=== PATIENT | female | born 1940 | race Caucasian/White ===

== ENCOUNTER → 2016-08-28 | Outpatient (CLI) | payer MEDICARE, OTHER | LOC: KOH-I 11:14 | DX: R06.02 Shortness of breath (principal); R06.2 Wheezing; J90 Pleural effusion, not elsewhere classified; J98.09 Other diseases of bronchus, not elsewhere classified | CPT/HCPCS: 71020 ==

== ENCOUNTER → 2020-06-08 | Outpatient (CLI) | payer MEDICARE, OTHER ==
[~2020-06-08] MED LIST: ALBUTEROL2.5 MG/3 M INH; CRESTOR20 MG PO; ELIQUIS5 MG PO; HYDRALAZINE HCL50 MG PO; IMDUR ER TAB 3030 MG PO; ISOSORBIDE MONO60 MG PO; LASIX20 MG PO; LEVOTHYROXINE100 MC2 PO; NITROGLYCERIN0.4 MG SL; PREDNISONE20 MG PO; PRILOSEC OTC20 MG PO; SYMBICORT 160-1 INHA INH; TOPROL XL100 MG PO; VITAMIN D31250 MCG PO
== END ==
LOC: HEART 5 13:54
DX: J45.40 Moderate persistent asthma, uncomplicated (principal); J96.10 Chronic respiratory failure, unspecified whether with hypoxia or hypercapnia; R09.02 Hypoxemia; R94.2 Abnormal results of pulmonary function studies
CPT/HCPCS: 94010; 94729; 95012

== ENCOUNTER → 2020-07-18 | Outpatient (CLI) | payer MEDICARE, OTHER | LOC: HEART 5 08:09 | DX: R55 Syncope and collapse (principal) ==

== ENCOUNTER 2020-07-27 10:58 | Emergency (ER) | payer MEDICARE, OTHER ==
[~2020-07-27 10:58] MED LIST changes: -ISOSORBIDE MONO60 MG PO; -NITROGLYCERIN0.4 MG SL; -SYMBICORT 160-1 INHA INH; -VITAMIN D31250 MCG PO
[2020-07-27 11:27] LABS: HEMOGLOBIN 8.8 gm/dl (12.3-15.3); RED BLOOD COUNT 3.02 M/UL (4.00-5.10)
[2020-07-27 12:00] LABS: BUN/CREATININE RATIO 18 (0-10)
[2020-11-01] MEDS ORDERED: ISOSORBIDE MONO60 MG PO (11:59)
[2020-11-01] MEDS ORDERED: SYMBICORT 160-1 INHA INH (12:00)
[2020-11-01] MEDS ORDERED: NITROGLYCERIN0.4 MG SL (12:00)
[2020-11-01] MEDS ORDERED: VITAMIN D31250 MCG PO (12:02)
== END 2020-07-27 14:32 | disposition home or self-care (01) ==
LOC: ER1 10:58
PROVIDERS: Student in an Organized Health Care Education/Training Program
DX: R55 Syncope and collapse (principal); I48.91 Unspecified atrial fibrillation; I10 Essential (primary) hypertension; E11.9 Type 2 diabetes mellitus without complications; Z88.2 Allergy status to sulfonamides
CPT/HCPCS: 71045; 80053; 81001; 82550; 82553; 83874; 84484; 85025; 93005; 99284

== ENCOUNTER → 2020-10-04 | Outpatient (CLI) | payer MEDICARE, OTHER ==
[~2020-10-04] MED LIST changes: +ISOSORBIDE MONO60 MG PO; +NITROGLYCERIN0.4 MG SL; +SYMBICORT 160-1 INHA INH; +VITAMIN D31250 MCG PO
== END ==
LOC: HEART 5 09:08
DX: R06.02 Shortness of breath (principal); R55 Syncope and collapse; I25.10 Atherosclerotic heart disease of native coronary artery without angina pectoris; R07.9 Chest pain, unspecified
CPT/HCPCS: 78452; 93306; A9502; J2785

== ENCOUNTER → 2020-10-21 | Outpatient (CLI) | payer MEDICARE, OTHER ==
[2020-10-21 12:43] LABS: HEMOGLOBIN 9.7 gm/dl (12.3-15.3); RED BLOOD COUNT 3.31 M/UL (4.00-5.10); WHITE BLOOD COUNT 5.7 K/UL (4.5-11.0)
== END ==
LOC: LAB 11:58
PROVIDERS: Internal Medicine Interventional Cardiology
DX: I25.10 Atherosclerotic heart disease of native coronary artery without angina pectoris (principal); I10 Essential (primary) hypertension; E11.9 Type 2 diabetes mellitus without complications; R07.9 Chest pain, unspecified; R06.02 Shortness of breath
CPT/HCPCS: 36415; 80048; 85025; 85610; 85730

== ENCOUNTER → 2020-11-01 | Outpatient (CLI) | payer MEDICARE, OTHER | LOC: CATH 11:21 | DX: I25.119 Atherosclerotic heart disease of native coronary artery with unspecified angina pectoris (principal); I48.91 Unspecified atrial fibrillation; I45.10 Unspecified right bundle-branch block; I12.9 Hypertensive chronic kidney disease with stage 1 through stage 4 chronic kidney disease, or unspecified chronic kidney disease; E11.22 Type 2 diabetes mellitus with diabetic chronic kidney disease; N18.9 Chronic kidney disease, unspecified; R55 Syncope and collapse; Z79.899 Other long term (current) drug therapy; Z79.890 Hormone replacement therapy; Z95.5 Presence of coronary angioplasty implant and graft; Z88.2 Allergy status to sulfonamides | CPT/HCPCS: 93005; 99152; C1769; J1644; J2250; J3010; J7030; Q9965 ==

== ENCOUNTER 2021-03-08 10:49 | Emergency (ER) | payer MEDICARE, OTHER ==
[2021-03-08 12:43] LABS: HEMOGLOBIN 10.1 gm/dl (12.3-15.3); RED BLOOD COUNT 3.36 M/UL (4.00-5.10); WHITE BLOOD COUNT 5.3 K/UL (4.5-11.0)
[2021-03-08] MEDS ORDERED: ZOFRAN4 MG PO (16:03)
== END 2021-03-08 16:11 | disposition home or self-care (01) ==
LOC: ER1 10:49
PROVIDERS: Physician Assistant Medical
DX: R11.0 Nausea (principal); J32.0 Chronic maxillary sinusitis; I48.91 Unspecified atrial fibrillation; I12.9 Hypertensive chronic kidney disease with stage 1 through stage 4 chronic kidney disease, or unspecified chronic kidney disease; N18.9 Chronic kidney disease, unspecified; E07.9 Disorder of thyroid, unspecified; Z95.5 Presence of coronary angioplasty implant and graft; Z88.2 Allergy status to sulfonamides; Z79.01 Long term (current) use of anticoagulants; Z79.899 Other long term (current) drug therapy; Z79.84 Long term (current) use of oral hypoglycemic drugs
CPT/HCPCS: 70450; 71045; 80053; 81001; 82550; 82553; 83874; 83880; 84484; 85025; 85610; 99285

== ENCOUNTER → 2021-03-31 | Outpatient (CLI) | payer MEDICARE, OTHER ==
[~2021-03-31] MED LIST changes: +ZOFRAN4 MG PO
== END ==
LOC: KOH-I 16:07
DX: M54.6 Pain in thoracic spine (principal); M47.814 Spondylosis without myelopathy or radiculopathy, thoracic region
CPT/HCPCS: 72070

== ENCOUNTER → 2021-05-02 | Outpatient (CLI) | payer MEDICARE, OTHER | LOC: NM 07:29 | DX: M54.6 Pain in thoracic spine (principal); M48.04 Spinal stenosis, thoracic region | CPT/HCPCS: 72146; 78306; A9503 ==

== ENCOUNTER 2021-07-12 07:49 | Observation (INO) | payer MEDICARE, OTHER ==
[~2021-07-12] VITALS: Ht 170.2 cm; Wt 76.2 kg
[~2021-07-12 07:49] MED LIST changes: -LEVOTHYROXINE100 MC2 PO; +LEVOTHYROXINE100 MCG PO; +OMEPRAZOLE40 MG PO; -PRILOSEC OTC20 MG PO; +VITAMIN D21250 MCG PO; -VITAMIN D31250 MCG PO
[2021-07-12 09:12] LABS: HEMOGLOBIN 10.1 gm/dl (12.3-15.3); RED BLOOD COUNT 3.27 M/UL (4.00-5.10); WHITE BLOOD COUNT 8.1 K/UL (4.5-11.0)
[2021-07-12] MEDS ORDERED: GLIPIZIDE5 MG PO (14:15)
[2021-07-12] MEDS ORDERED: FUROSEMIDE20 MG PO (14:15)
[2021-07-12] MEDS ORDERED: VITAMIN B-121000 MCG PO (14:16)
[2021-07-13 04:37] LABS: WHITE BLOOD COUNT 7.1 K/UL (4.5-11.0)
[2021-07-13 04:42] LABS: RED BLOOD COUNT 2.92 M/UL (4.00-5.10)
[2021-07-14] MEDS ORDERED: LOPRESSOR 25 MG25 MG PO (08:52)
[2021-07-14] MEDS ORDERED: TOPROL XL25 MG PO ×2 (10:06→10:12)
== END 2021-07-14 12:09 | disposition home or self-care (01) ==
LOC: ER1 07:49 → CDU 10:26 → M/S 12:00
PROVIDERS: Emergency Medicine; Physician Assistant Medical; ADMIT Internal Medicine
DX: R55 Syncope and collapse (principal); I48.20 Chronic atrial fibrillation, unspecified; E03.9 Hypothyroidism, unspecified; E78.5 Hyperlipidemia, unspecified; I25.10 Atherosclerotic heart disease of native coronary artery without angina pectoris; I12.9 Hypertensive chronic kidney disease with stage 1 through stage 4 chronic kidney disease, or unspecified chronic kidney disease; E11.22 Type 2 diabetes mellitus with diabetic chronic kidney disease; N18.30 Chronic kidney disease, stage 3 unspecified; C64.2 Malignant neoplasm of left kidney, except renal pelvis; R79.1 Abnormal coagulation profile; I45.10 Unspecified right bundle-branch block; D63.0 Anemia in neoplastic disease; D63.1 Anemia in chronic kidney disease; I65.23 Occlusion and stenosis of bilateral carotid arteries; G47.33 Obstructive sleep apnea (adult) (pediatric); I07.1 Rheumatic tricuspid insufficiency; G89.29 Other chronic pain; M54.50 Low back pain, unspecified; I27.20 Pulmonary hypertension, unspecified; Z82.49 Family history of ischemic heart disease and other diseases of the circulatory system; Z79.84 Long term (current) use of oral hypoglycemic drugs; Z79.01 Long term (current) use of anticoagulants; Z88.2 Allergy status to sulfonamides; Z96.641 Presence of right artificial hip joint; Z20.822 Contact with and (suspected) exposure to COVID-19
CPT/HCPCS: ECHO; 36415; 70450; 70551; 71045; 78580; 80048; 80053; 81001; 82550; 82553; 82962; 83735; 84484; 85025; 85027; 85379; 93005; 93306; 93880; 95816; 96374; 99285; G0378; J2405; U0002

== ENCOUNTER → 2021-08-09 | Outpatient (CLI) | payer MEDICARE, OTHER ==
[~2021-08-09] MED LIST changes: +FUROSEMIDE20 MG PO; +GLIPIZIDE5 MG PO; +LOPRESSOR 25 MG25 MG PO; +TOPROL XL25 MG PO; +VITAMIN B-121000 MCG PO
== END ==
LOC: HEART 5 08:21
DX: I48.21 Permanent atrial fibrillation (principal); R55 Syncope and collapse

== ENCOUNTER → 2021-08-24 | Outpatient (CLI) | payer MEDICARE, OTHER | LOC: CATH 10:00 | DX: R55 Syncope and collapse (principal) ==